=== PATIENT | male | born 1975 | race Caucasian/White ===

== ENCOUNTER 2020-07-26 16:19 | Outpatient (CLI) | payer OTHER ==
--- NOTE | 2020-07-26 16:49 | XRAY Report ---
PROCEDURE: Shoulder 3 View RT INDICATIONS: SUBACROMIAL BURSITIS, RT TECHNIQUE: 3 views of the shoulder were acquired. COMPARISON: None. FINDINGS: Bones: No fractures or dislocations. No suspicious bony lesions. Visualized ribs appear intact. Soft tissues: No suspicious soft tissue calcifications. IMPRESSION: Unremarkable exam. Reviewed by: Cristiana Saleem MD on 07/26/2020 4:47 PM PDT Approved by: Cristiana Saleem MD on 07/26/2020 4:47 PM PDT Station ID: [id number]
== END 2020-07-26 16:20 | disposition home or self-care (01) ==
LOC: DI.S 16:19
PROVIDERS: ATTEND Internal Medicine
DX: M75.51 Bursitis of right shoulder (principal)

== ENCOUNTER 2022-04-14 20:59 | Outpatient (CLI) | payer OTHER | END 2022-04-14 23:59 | disposition critical access hospital (66) | LOC: EMS 20:59 | DX: R10.32 Left lower quadrant pain (principal); R11.2 Nausea with vomiting, unspecified; M54.50 Low back pain, unspecified | CPT/HCPCS: A0425; A0427 ==

== ENCOUNTER 2022-04-14 21:29 | Emergency (ER) | payer OTHER ==
[2022-04-14] MEDS ORDERED: KETOROLAC 30 MG/ML VIAL IVP STA (21:38)
[2022-04-14] MEDS ORDERED: LIDOCAINE-MPF 2% 5 ML in SODIUM CHLORIDE 0.9% 50 ML IV STA (21:38)
[2022-04-14] MEDS ORDERED: HYDROmorphone 1 MG/ML CARPUJECT IVP STA (21:39)
[2022-04-14] MEDS ORDERED: LIDOCAINE-MPF 2% 5 ML VIAL ONE (21:44)
[2022-04-14 21:47] LABS: BASOPHILS # (AUTO) 0.1 10^3/uL (0.0-0.1); BASOPHILS % (AUTO) 0.8 %; EOSINOPHILS # (AUTO) 0.4 10^3/uL (0.0-0.7); EOSINOPHILS % (AUTO) 4.8 %; HCT - HEMATOCRIT 39.5 % (42.0-52.0); HGB - HEMOGLOBIN 13.1 g/dL (14.0-18.0); LYMPHOCYTES # (AUTO) 2.3 10^3/uL (1.5-3.5); LYMPHOCYTES % (AUTO) 26.2 %; MEAN CORPUSCULAR HEMOGLOBIN 30.9 pg (27.0-31.0); MEAN CORPUSCULAR HGB CONC 33.2 g/dL (32.0-36.0); MEAN CORPUSCULAR VOLUME 93.2 fL (80.0-94.0); MEAN PLATELET VOLUME 10.5 fL (7.4-11.4); MONOCYTES % (AUTO) 11.1 %; NEUTROPHILS % (AUTO) 56.9 %; PLT - PLATELET COUNT 223 10^3/uL (130-450); RED BLOOD COUNT 4.24 10^6/uL (4.70-6.10); WHITE BLOOD COUNT 8.7 x10^3/uL (4.8-10.8)
--- NOTE | 2022-04-14 22:00 | ED Physician Documentation ---
History of Present Illness - Stated complaint Stated Complaint: LEFT FLANK PAIN - Chief complaint Chief Complaint: Abd Pain - History obtained from History obtained from: Patient, EMS - History of Present Illness Timing: Today, How many hours ago (2) Pain level max: 10 Pain level now: 10 - Additonal information Additional information: Patient is a 46-year-old male who presents to the emergency department sudden onset left flank pain. He states that the pain has moved down the left flank towards the left lower abdomen/groin. Has not had similar symptoms previously. Started about 2 hours prior to arrival. No fevers. No chills. No history of kidney stones. Given 250 mcg of fentanyl by EMS. Continues having pain. Review of Systems Constitutional: denies: Fever, Chills Respiratory: denies: Cough GI: denies: Vomiting, Diarrhea : denies: Dysuria, Frequency, Hesitancy, Hematuria Skin: denies: Rash Musculoskeletal: denies: Neck pain Neurologic: denies: Headache PD PAST MEDICAL HISTORY - Past Medical History Past Medical History: No - Past Surgical History Past Surgical History: Yes Ortho: Other HEENT: Other - Present Medications Home Medications: Ambulatory Orders Medication Instructions Recorded Confirmed No Known Home Medications 04/14/22 04/14/22 - Allergies Allergies/Adverse Reactions: Allergies Allergy/AdvReac Type Severity Reaction Status Date / Time No Known Drug Allergies Allergy Verified 04/14/22 21:37 - Social History Does the pt smoke?: No Smoking Status: Never smoker Does the pt drink ETOH?: No Does the pt have substance abuse?: No - Immunizations Immunizations are current?: Yes - POLST Patient has POLST: No PD ED PE NORMAL - Vitals Vital signs reviewed: Yes - General General: Alert and oriented X 3, Other (appears in pain) - HEENT HEENT: Moist mucous membranes - Neck Neck: Supple, no meningeal sign - Cardiac Cardiac: RRR, Strong equal pulses - Respiratory Respiratory: No respiratory distress, Clear bilaterally - Abdomen Abdomen: Soft, Non tender, Non distended - Back Back: No CVA TTP - Derm Derm: Warm and dry - Extremities Extremities: No calf tenderness / cord - Neuro Neuro: Alert and oriented X 3 Results - Vitals Vitals: Vital Signs - 24 hr 04/14/22 21:37 Temperature 37.2 C Heart Rate 70 Respiratory 24 Rate Blood Pressure 132/70 H O2 Saturation 100 Oxygen O2 Source Room air - Labs Labs: Laboratory Tests 04/14/22 04/14/22 21:44 21:44 WBC 8.7 RBC 4.24 L Hgb 13.1 L Hct 39.5 L MCV 93.2 MCH 30.9 MCHC 33.2 RDW 12.0 Plt Count 223 MPV 10.5 Neut # (Auto) 5.0 Lymph # (Auto) 2.3 [place] # (Auto) 1.0 Eos # (Auto) 0.4 Baso # (Auto) 0.1 Absolute Nucleated RBC 0.00 Nucleated RBC % 0.0 Sodium 137 Potassium 4.0 Chloride 103 Carbon Dioxide 23 Anion Gap 11.0 BUN 17 Creatinine 1.0 Estimated GFR (MDRD) 80 L Glucose 138 H Calcium 9.0 Total Bilirubin 0.7 AST 20 ALT 18 Alkaline Phosphatase 61 Total Protein 6.9 Albumin 4.0 Globulin 2.9 Albumin/Globulin Ratio 1.4 Lipase 35 - Rads (name of study) CT abd/pelvis Radiology: See rad report PD MEDICAL DECISION MAKING - ED course Complexity details: reviewed results, considered differential, d/w patient ED course: Patient is a 46-year-old male who presents to the emergency department with left-sided flank pain sudden onset, consistent with a ureteral stone. Given Toradol, lidocaine, Dilaudid. Pain resolved. Awaiting CT scan and urinalysis. Patient will be signed out to Dr. Maya for further care. Patient is very well-appearing, nontoxic. Afebrile. Departure - Departure Clinical Impression: Flank pain Condition: Good
[2022-04-14 22:05] LABS: ALBUMIN/GLOBULIN RATIO 1.4 (1.0-2.2); BILIRUBIN,TOTAL 0.7 mg/dL (0.2-1.0); TOTAL PROTEIN 6.9 g/dL (6.7-8.2)
[2022-04-14 23:44] LABS: BILIRUBIN,URINE NEGATIVE (NEGATIVE); GLUCOSE, URINE (UA) NEGATIVE (NEGATIVE); KETONES,URINE (UA) >=80 mg/dL (NEGATIVE); LEUKOCYTE ESTERASE, URINE NEGATIVE (NEGATIVE); NITRITE,URINE NEGATIVE (NEGATIVE); OCCULT BLOOD,URINE LARGE (NEGATIVE); PROTEIN,URINE NEGATIVE (NEGATIVE); UROBILINOGEN,URINE 0.2 (NORMAL) E.U./dL (NORMAL)
[2022-04-14 23:51] LABS: BACTERIA,URINE Rare /HPF (None Seen); CLARITY,URINE CLEAR (CLEAR); MUCUS,URINE Few Strands; SQUAMOUS EPITHELIAL CELL,UR FEW Squamous (<= Few); WBC,URINE 0-3 /HPF (0-3)
[2022-04-15] MEDS ORDERED: ONDANSETRON 4 MG/2 ML VIAL IVP STA (00:33)
--- NOTE | 2022-04-15 00:57 | CT Report ---
PROCEDURE: ABDOMEN/PELVIS WO INDICATIONS: L flank pain TECHNIQUE: Noncontrast 5 mm thick sections acquired from the diaphragms to the symphysis. 5 mm coronal and sagi ttal reformats were then performed. For radiation dose reduction, the following was used: automated exposure control, adjustment of mA and/or kV according to patient size. COMPARISON: None. FINDINGS: Image quality: Excellent. Lung bases: There is mild dependant atelectasis. Heart: Heart is normal in size. URINARY: Right Kidney and Ureter: There are 4 small right renal stones with the largest measuring up to approx imately 0.2 cm.No hydronephrosis. Left Kidney and Ureter: There is a urinary stone in the bladder measuring up to 0.3 cm in the regio n of the left ureterovesicular junction. There is mild residual hydronephrosis. There are 4 additiona l mass within left renal stones, the largest measuring up to 0.3 cm. Bladder: Normal definite bladder wall thickness. No stones. ABDOMEN: Liver: Noncontrast evaluation of the liver demonstrates no discrete mass. Gallbladder: Within normal limits without calcified gallstones. Biliary ducts: No biliary ductal dilatation. Pancreas: Unremarkable. Spleen: Normal in size. Adrenal Glands: No adrenal nodules. Stomach and Bowel: Stomach, small bowel loops, and colon are normal in caliber and wall thickness. T he appendix is normal in appearance. There is mild colonic diverticulosis without acute diverticular colitis. Peritoneum: No abnormal intraperitoneal fluid. No free air. Ventral Wall: No hernia. Abdominal Nodes: No retroperitoneal or mesenteric adenopathy by size criteria. Vessels: Aorta and inferior vena cava are normal in size. PELVIS: Pelvic Organs: Unremarkable. Pelvic Nodes: No enlarged lymph nodes. Miscellaneous: No inguinal hernias identified. Bones: Visualized osseous structures demonstrate no suspicious focal lesions. IMPRESSION: 1. Urinary stone in the bladder in the region of the left UVJ. There is mild residual left hydronephr osis. 2. Bilateral additional nonobstructing small renal stones as described. 3. Colonic diverticulosis. Reviewed by: Jefferson Wright MD on 04/15/2022 1:05 AM [facility] Approved by: Jefferson Wright MD on 04/15/2022 1:05 AM PST Station ID: [id number]
[2022-04-15] MEDS ORDERED: TAMSULOSIN 0.4 MG CAPSULE PO STA (02:02)
[2022-04-15] MEDS ORDERED: oxyCODONE/ACET 5/325 Prepack 4 PO STA (02:02)
[2022-04-15 02:18] VITALS: BP 125/83
--- NOTE | 2022-04-15 02:54 | ED Physician Documentation ---
ED Addendum - Addendum Addendum: 04/15/22 02:52 Received sign out from Dr. King. Patient's CT shows left ureteral stone that is possibly in bladder. There are multiple bilateral intrarenal calculi as well. On my evaluation, patient is in NAD, reports feeling much better. Results d/w patient. He is given flomax and take-home percocet. I e-prescribed flomax, zofran, and oxycodone. Return precautions reviewed and follow up recommended, particularly considering he has many other intrarenal stones.
== END 2022-04-15 02:36 | disposition home or self-care (01) ==
LOC: EDUNIT# → ED 21:29
DX: N13.2 Hydronephrosis with renal and ureteral calculous obstruction (principal)
CPT/HCPCS: 36415; 74176; 80053; 81001; 83690; 85025; 96365; 96375; 99284; 99285; A9270; J1170; J7040; 81003; 87086

== ENCOUNTER 2023-05-11 08:00 | Outpatient (CLI) | payer OTHER | END 2023-05-11 23:59 | disposition home or self-care (01) | LOC: LAB.S 08:00 | PROVIDERS: ATTEND Physician Assistant | DX: N39.0 Urinary tract infection, site not specified (principal) | CPT/HCPCS: 87077; 87086; 87181 ==

== ENCOUNTER 2023-12-11 08:00 | Outpatient (CLI) | payer OTHER ==
--- NOTE | 2023-12-11 17:28 | XRAY Report ---
Shoulder 2+V RT HISTORY: 47 years of age, PAIN IN RIGHT SHOULDER TECHNIQUE: Shoulder 2+V RT COMPARISON: None. FINDINGS/IMPRESSION: No acute fracture or dislocation. Joint spaces are well maintained. Reviewed by: Kalie Falcon MD on 12/11/2023 5:27 PM PDT Approved by: Kalie Falcon MD on 12/11/2023 5:27 PM PDT Station ID: [id number]
== END 2023-12-11 23:59 | disposition home or self-care (01) ==
LOC: DI.S 08:00
PROVIDERS: ATTEND Nurse Practitioner
DX: M25.511 Pain in right shoulder (principal)